=== PATIENT | female | born 1930 | race Caucasian/White ===

== ENCOUNTER 2018-02-08 21:23 | Emergency (ER) | payer MEDICARE, OTHER ==
[2018-02-08] MEDS ORDERED: methylPREDNISolone Sodium Succinate 125 MG/2 ML SDV IM ONE (22:01)
[2018-02-08] MEDS ORDERED: Albuterol/Ipratropium 3.0-0.5 MG/3 ML Neb Soln NEB ONE (22:01)
--- NOTE | 2018-02-08 22:41 | EDM.PDOC ---
ED HPI GENERAL MEDICAL PROBLEM - General Chief Complaint: Fever Stated Complaint: HIPOLITOG,SOB,FEVER Time Seen by Provider: 02/08/18 21:43 Source of Information: Reports: Patient History Limitations: Reports: Respiratory Distress - History of Present Illness INITIAL COMMENTS - FREE TEXT/NARRATIVE: 87 y.o.w.f with a h/o COPD on Atrovent and albuterol at home, has a nebulizer machine at home, came to the ed with an acute onset of productive cough, which is new to her. No F/C. No N/V/D or any other acute medical issues. 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 - Related Data Allergies Allergy/AdvReac Type Severity Reaction Status Date / Time aspirin Allergy Difficulty Verified 02/08/18 21:36 Breathing influenza virus vaccine, Allergy Rash Verified 02/08/18 21:36 specific [Influenza Virus Vacc,Specific] Home Meds: Home Meds Albuterol [Proair HFA] 2 puff INH QID PRN 01/22/14 [History] Ascorbic Acid 500 mg PO BEDTIME 01/22/14 [History] Budesonide [Pulmicort] 2 ml INH BID 01/22/14 [History] Hydrochlorothiazide 1 cap PO DAILY 01/22/14 [History] Ipratropium/Albuterol Sulfate [Duoneb 0.5 MG-3 MG/3 ML] 3 ml INH QID PRN [History] Lutein/Minerals/Vit A,C & E [Ocuvite] 1 tab PO BID 01/22/14 [History] Multivitamin with Minerals [Multiple Vitamin] 1 tab PO DAILY 01/22/14 [History] Simvastatin 1 tab PO BEDTIME 01/22/14 [History] Sulfamethoxazole/Trimethoprim [Bactrim Ds Tablet] 1 each PO BID #20 tablet 04/08 /18 [Rx] Past Medical History HEENT History: Reports: Impaired Vision Other HEENT History: wears glasses Cardiovascular History: Reports: High Cholesterol, Hypertension Respiratory 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: 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: Endocrine/Metabolic History: Reports: Diabetes, Type II, Other (See Below) Other Endocrine/Metabolic History: pt states is border line diabetic controled by diet - Infectious Disease History Infectious Disease History: Reports: Chicken Pox, Measles, Mumps, Shingles Social & Family History - Family History Family Medical History: Noncontributory - Tobacco Use Smoking Status *Q: Former Smoker Years of Tobacco use: 25 Used Tobacco, but Quit: Yes Month/Year Tobacco Last Used: 03/2011 - Caffeine Use Caffeine Use: Reports: None - Alcohol Use Days Per Week of Alcohol Use: 0 - Recreational Drug Use Recreational Drug Use: No ED ROS GENERAL - Review of Systems Review Of Systems: See Below Constitutional: Reports: No Symptoms HEENT: Reports: No Symptoms Respiratory: Reports: Shortness of Breath, Cough Cardiovascular: Reports: No Symptoms Endocrine: Reports: No Symptoms GI/Abdominal: Reports: No Symptoms : Reports: No Symptoms Musculoskeletal: Reports: No Symptoms Skin: Reports: No Symptoms Neurological: Reports: No Symptoms Psychiatric: Reports: No Symptoms Hematologic/Lymphatic: Reports: No Symptoms Immunologic: Reports: No Symptoms ED EXAM, GENERAL - Physical Exam Exam: See Below Exam Limited By: No Limitations General Appearance: Alert, WD/WN, Mild Distress Eye Exam: Bilateral Eye: Normal Inspection Ears: Normal External Exam Ear Exam: Bilateral Ear: Auricle Normal Nose: Normal Inspection, Normal Mucosa, No Blood Throat/Mouth: Normal Inspection, Normal Lips Head: Atraumatic, Normocephalic Neck: Normal Inspection, Supple, Non-Tender, Full Range of Motion Respiratory/Chest: No Respiratory Distress, Rhonchi Cardiovascular: Normal Peripheral Pulses, Regular Rate, Rhythm, No Edema, No Gallop, No JVD, No Murmur, No Rub Peripheral Pulses: 1+: Brachial (L) GI/Abdominal: Normal Bowel Sounds, Soft, Non-Tender, No Organomegaly, No Distention, No Abnormal Bruit, No Mass (Female) Exam: Deferred Rectal (Female) Exam: Deferred Back Exam: Normal Inspection Extremities: Normal Inspection, Normal Range of Motion, Non-Tender, No Pedal Edema, Normal Capillary Refill Neurological: Alert, Oriented, CN II-XII Intact, Normal Cognition, Normal Gait Psychiatric: Normal Affect, Normal Mood Skin Exam: Warm, Dry, Intact, Normal Color, No Rash Lymphatic: No Adenopathy Course - Vital Signs Text/Narrative:: 87 y.o.w.f with a h/o COPD on Atrovent and albuterol at home, has a nebulizer machine at home, came to the ed with an acute onset of productive cough, which is new to her. No F/C. No N/V/D or any other acute medical issues. BP 129/87 RR 20 Pulse ox 94% on RA temp 36.8 pulse 101 PE: 87 y.o.w. f with a h/o COPD cam to the ed with new onset of prod. cough Imaging: CXR :NAD. COPD Impression: COPD exacerbation, acute bronchitis Tx: Solumedrol, Duoneb, Bactrim DS as prescription Reexam: Improved, pt has prednison at home. Plan: D/C with instructions Last Recorded V/S: Last Vital Signs Temp 36.6 C 02/08/18 22:41 Pulse 107 H 02/08/18 22:41 Resp 18 02/08/18 22:41 BP 116/56 L 02/08/18 22:41 Pulse Ox 95 02/08/18 22:41 - Orders/Labs/Meds Orders: Active Orders 24 hr Category Date Time Status RT Aerosol Therapy [RC] ASDIRECTED Care 02/08/18 22:02 Active Chest 2V [CR] Stat Exams 02/08/18 22:01 Taken Meds: Medications Discontinued Medications Generic Name Dose Route Start Last Admin Trade Name Cori PRN Reason Stop Dose Admin Albuterol/Ipratropium 3 ml 02/08/18 22:01 02/08/18 22:12 Duoneb 3.0-0.5 Mg/3 Ml NEB 02/08/18 22:02 3 ml ONETIME ONE Administration Methylprednisolone Sodium Succinate 125 mg 02/08/18 22:01 02/08/18 22:10 Solu-Medrol IM 02/08/18 22:02 125 mg ONETIME ONE Administration Departure - Departure Time of Disposition: 22:38 Disposition: Home, Self-Care 01 Condition: Good Clinical Impression: COPD mixed type Acute bronchitis Qualifiers: Bronchitis organism: other organism Qualified Code(s): J20.8 - Acute bronchitis due to other specified organisms - Discharge Information Prescriptions: Sulfamethoxazole/Trimethoprim [Bactrim Ds Tablet] 1 each PO BID #20 tablet Referrals: Inga Elam, LIQUID LOADER [Primary Care Provider] - Forms: ED Department Discharge Additional Instructions: Please take the the Bactrim DS as recommended, please take Prednison 1/2 a tblet for 3 days. Continue your current meds, please f/u, come back to the ed if your symptoms get worse acutely - My Orders Last 24 Hours: My Active Orders 02/08/18 22:01 Chest 2V [CR] Stat 02/08/18 22:02 RT Aerosol Therapy [RC] ASDIRECTED - Assessment/Plan Last 24 Hours: My Active Orders 02/08/18 22:01 Chest 2V [CR] Stat 02/08/18 22:02 RT Aerosol Therapy [RC] ASDIRECTED
--- NOTE | 2018-02-09 13:41 | CR ---
INDICATION: Short of breath. CHEST: PA and lateral views of the chest 02/08/2018, compared with 01/22/2014 and 03/09/2011, again revealed findings compatible with COPD with prominent AP diameter, flattening of diaphragm leaves, and hyperaeration. Also, interdigitation of diaphragm leaves was present to a mild degree. A definite active infiltrate or effusion was not identified. The heart appeared normal in size and shape. The aorta is slightly tortuous with calcification in the arch and descending portion. Somewhat demineralized bony structures suggest the possibility of osteoporosis - correlate clinically. Bridging hyperostotic changes are noted anteriorly off vertebral bodies in the mid thoracic spine and may be slightly progressive compared with the previous study of 2013. Dextroconcave scoliosis of the upper middle thoracic spine is noted. IMPRESSION: 1. No definite acute process. 2. Areas of fibrosis noted, especially at the left lung base. 3. COPD. 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 MTDD
== END 2018-02-08 22:46 | disposition home or self-care (01) ==
LOC: FB.ED 21:23
DX: J44.1 Chronic obstructive pulmonary disease with (acute) exacerbation (principal); J20.8 Acute bronchitis due to other specified organisms; I10 Essential (primary) hypertension; E78.00 Pure hypercholesterolemia, unspecified; E11.9 Type 2 diabetes mellitus without complications; Z87.891 Personal history of nicotine dependence; Z88.6 Allergy status to analgesic agent
CPT/HCPCS: 71046; 94640; 96372; 99284; J2930; J7620

== ENCOUNTER 2018-05-21 02:21 | Emergency (ER) | payer MEDICARE, OTHER ==
[2018-05-21] MEDS ORDERED: Albuterol/Ipratropium 3.0-0.5 MG/3 ML Neb Soln NEB ONE (02:27)
[2018-05-21] MEDS ORDERED: methylPREDNISolone Sodium Succinate 125 MG/2 ML SDV IM ONE (02:46)
[2018-05-21] MEDS ORDERED: methylPREDNISolone Sodium Succinate 125 MG/2 ML SDV ONE (03:05)
--- NOTE | 2018-05-21 04:43 | ER ---
DATE SEEN: 05/21/2018 REASON FOR VISIT: Wheezing. HISTORY OF PRESENT ILLNESS: An 88-year-old female, who has a history of COPD, complains of wheezing that started suddenly at about 1700 hours associated with a cough. She tried albuterol at home with minimal improvement. PAST MEDICAL HISTORY: Hypertension and COPD. ALLERGIES: Aspirin and influenza virus vaccination. SOCIAL HISTORY: She quit smoking years ago. PHYSICAL EXAMINATION: VITAL SIGNS: Blood pressure is 163/65, pulse is 119, temperature 97.4, and oxygenation 92%. EARS, NOSE, AND THROAT: Negative. CHEST: Positive for wheezing and decreased air exchange bilaterally. EXTREMITIES: No edema or cyanosis. RADIOGRAPHIC DATA: Chest x-ray was unremarkable. LABORATORY DATA: CBC: Normal, with the exception of a white cell count of 14.3. Troponin and BNP are pending at the time of the dictation. DIAGNOSTIC DATA: EKG showed mild sinus tachycardia. IMPRESSION: Chronic obstructive pulmonary disease exacerbation, acute. PLAN: I gave her one-time DuoNeb and 125 mg of Solu-Medrol IM, and we will discharge the patient to use prednisone that she has at home and may use DuoNeb every 4 hours as needed. Follow up with Inga Elam on Friday. Return to the ED with any worsening symptoms. At discharge, she had some wheezing, but oxygenation was 93%. /[id number] CHARISMA/AILEEN
--- NOTE | 2018-05-21 13:21 | CR ---
INDICATION: Cough. CHEST, TWO VIEWS: PA and lateral views of the chest were obtained 05/21/2018 and compared with 02/08/2018 and 01/22/2014. The heart remains normal in size and shape. Slightly increased flattening of diaphragm leaves is noted, compatible with progressive COPD and/or exacerbation of COPD. A definite active infiltrate or effusion was not identified. Interstitial markings are again noted to be prominent, compatible with mild fibrosis. The aorta is slightly tortuous. Somewhat diminished bone density raises the question of osteoporosis. Bridging hyperostotic changes are noted in the mid to lower middle thoracic spine. There is again noted a mild dextroconvex scoliosis at the thoracolumbar spine. Minimal basilar bronchial wall cuffing is noted, which could represent fibrosis and/or active peribronchial disease and should be correlated clinically. IMPRESSION: 1. No definite acute process, but cannot exclude minimal active peribronchial disease at the lung bases with bronchial wall cuffing noted. 2. Pulmonary fibrosis. 3. COPD, possibly exacerbated or progressive. 4, ASD aorta. 5. Osteoporosis and DJD with scoliosis in the spine. MTDD
== END 2018-05-21 03:53 | disposition home or self-care (01) ==
LOC: FB.ED 02:21
DX: J44.1 Chronic obstructive pulmonary disease with (acute) exacerbation (principal); I10 Essential (primary) hypertension; J44.9 Chronic obstructive pulmonary disease, unspecified; Z88.6 Allergy status to analgesic agent; Z88.7 Allergy status to serum and vaccine; Z87.891 Personal history of nicotine dependence
CPT/HCPCS: 36415; 71046; 80053; 83880; 84484; 85025; 93005; 94640; 96372; 99285; J2930; J7620

== ENCOUNTER 2018-11-20 09:23 | Observation (INO) | payer MEDICARE, OTHER ==
[2018-11-20] MEDS ORDERED: Albuterol/Ipratropium 3.0-0.5 MG/3 ML Neb Soln NEB ONE (09:31)
[2018-11-20] MEDS ORDERED: methylPREDNISolone Sodium Succinate 125 MG/2 ML SDV IVPUSH ONE (09:33)
--- NOTE | 2018-11-20 09:41 | EDM.PDOC ---
ED HPI GENERAL MEDICAL PROBLEM - General Chief Complaint: Fever Stated Complaint: FEVER Time Seen by Provider: 11/20/18 09:23 Source of Information: Reports: Patient, Family History Limitations: Reports: Respiratory Distress - History of Present Illness INITIAL COMMENTS - FREE TEXT/NARRATIVE: 88 y.o.w.f came to the ed due to SOB and cough. Pt has COPD and is on home O2 by [place], has fever and productive cough. Pt has a nebulizer machine at home. She used it this am with helping her cough. Pt lives by herself, her daughter brought her to the ed. No C/P, no N/V/D or any other acute medical issues. 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 Treatments (duoneb, did not help) sleeping Pain Score (Numeric/FACES): 0 - Related Data Allergies Allergy/AdvReac Type Severity Reaction Status Date / Time aspirin Allergy Difficulty Verified 11/20/18 09:29 Breathing influenza virus vaccine, Allergy Rash Verified 11/20/18 09:29 specific [Influenza Virus Vacc,Specific] Home Meds: Home Meds Albuterol [Proair HFA] 2 puff INH QID PRN 01/22/14 [History] Ascorbic Acid 500 mg PO BEDTIME 01/22/14 [History] Budesonide [Pulmicort] 2 ml INH BID 01/22/14 [History] Hydrochlorothiazide 12.5 mg PO DAILY 01/22/14 [History] Ipratropium/Albuterol Sulfate [Duoneb 0.5 MG-3 MG/3 ML] 3 ml INH Q4H PRN [History] Lutein/Minerals/Vit A,C & E [Ocuvite] 1 tab PO DAILY 01/22/14 [History] Simvastatin 10 mg PO BEDTIME 01/22/14 [History] Acetaminophen 500 mg PO DAILY PRN 05/21/18 [History] Montelukast [Singulair] 10 mg PO BEDTIME 05/21/18 [History] .Advanced Eye Relief 1 drop EYEBOTH BID PRN 11/21/18 [History] Gabapentin [Neurontin] 100 mg PO TID PRN 11/21/18 [History] Melatonin 3 mg PO BEDTIME PRN 11/21/18 [History] predniSONE [Prednisone] 20 mg PO BID PRN #10 tablet 11/22/18 [Rx] Past Medical History HEENT History: Reports: Hard of Hearing, Impaired Vision Other HEENT History: wears glasses Cardiovascular History: Reports: High Cholesterol, Hypertension Respiratory History: Reports: 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, 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: Endocrine/Metabolic History: Reports: Diabetes, Type II, Other (See Below) Other Endocrine/Metabolic History: pt states is border line diabetic controled by diet - Infectious Disease History Infectious Disease History: Reports: Chicken Pox, Measles, Mumps, Shingles - Past Surgical History Female Surgical History: Reports: Hysterectomy Social & Family History - Family History Family Medical History: Noncontributory - Caffeine Use Caffeine Use: Reports: Coffee ED ROS GENERAL - Review of Systems Review Of Systems: See Below Constitutional: Reports: No Symptoms HEENT: Reports: No Symptoms Respiratory: Reports: Shortness of Breath Cardiovascular: Reports: No Symptoms Endocrine: Reports: No Symptoms GI/Abdominal: Reports: No Symptoms : Reports: No Symptoms Musculoskeletal: Reports: No Symptoms Skin: Reports: No Symptoms Neurological: Reports: No Symptoms Psychiatric: Reports: No Symptoms Hematologic/Lymphatic: Reports: No Symptoms Immunologic: Reports: No Symptoms ED EXAM, GENERAL - Physical Exam Exam: See Below Exam Limited By: Respiratory Distress General Appearance: Alert, WD/WN, Thin Eye Exam: Bilateral Eye: Normal Inspection Ears: Normal External Exam Ear Exam: Bilateral Ear: Auricle Normal Nose: Normal Inspection, Normal Mucosa, No Blood Throat/Mouth: Normal Inspection, Normal Lips, Normal Voice, No Airway Compromise Head: Atraumatic Neck: Normal Inspection, Supple, Non-Tender, Full Range of Motion Respiratory/Chest: Respiratory Distress, Rhonchi, Wheezing Cardiovascular: Normal Peripheral Pulses, Regular Rate, Rhythm, No Edema, No Gallop, No JVD, No Murmur Peripheral Pulses: 1+: Brachial (R) GI/Abdominal: Normal Bowel Sounds, Soft, Non-Tender, No Organomegaly, No Distention (Female) Exam: Deferred Rectal (Female) Exam: Deferred Back Exam: Normal Inspection, Full Range of Motion Extremities: Normal Inspection, Normal Range of Motion, Non-Tender Neurological: Alert, Oriented, CN II-XII Intact, Normal Cognition, Normal Gait Psychiatric: Normal Affect, Normal Mood Skin Exam: Warm, Dry, Intact, Normal Color, No Rash Lymphatic: No Adenopathy Course - Vital Signs Text/Narrative:: 88 y.o.w.f came to the ed due to SOB and cough. Pt has COPD and is on home O2 [place], has fever and productive cough. Pt has a nebulizer machine at home. She used it this am with helping her cough. Pt lives by herself, her daughter brought her to the ed. No C/P, no N/V/D or any other acute medical issues. BP 169/71 RR 18 Temp 36.8 Pulse 113 Pulse ox 87 on RA PE: This 88 y.o.w.f with a cough, fever and SOB Imaging: CXR: No nw infiltrate but bronchial cuffing s/o Bronchitis etc LabsL WBC 21k (February 14) Neutr. 99% reminder of CBC neg. BMP Neg Except GFR 52 Cl 99 Glc 160 Lactic acid was nl UA: pos for small Leucocytes Impresison: COPD. Brochial asthma, elevated WBC Tx: Duo neb, Solumedrol, Levoquine 10.37 am Consultation: Janki Avalos, Hospitalist: Accepted the pt for obs Plan: Admit to [facility]. Last Recorded V/S: Last Vital Signs Temp 36.4 C 11/22/18 08:41 Pulse 88 11/22/18 08:30 Resp 18 11/22/18 08:41 BP 148/74 H 11/22/18 08:41 Pulse Ox 93 L 11/22/18 08:41 - Orders/Labs/Meds Labs: Laboratory Tests 11/20/18 11/20/18 11/20/18 Range/Units 09:49 09:49 09:49 WBC 21.9 H (4.5-12.0) X10-3/uL RBC 4.72 (3.23-5.20) x10(6)uL Hgb 14.3 (11.5-15.5) g/dL Hct 41.9 (30.0-51.3) % MCV 88.7 (80-96) fL MCH 30.4 (27.7-33.6) pg MCHC 34.3 (32.2-35.4) g/dL RDW 12.1 (11.5-15.5) % Plt Count 333 (125-369) X10(3)uL MPV 7.6 (7.4-10.4) fL Add Manual Diff Yes Neutrophils % (Manual) 93 H (46-82) % Lymphocytes % (Manual) 4 L (13-37) % Monocytes % (Manual) 3 L (4-12) % Sodium 136 (135-145) mmol/L Potassium 3.8 (3.5-5.3) mmol/L Chloride 99 L (100-110) mmol/L Carbon Dioxide 30 (21-32) mmol/L BUN 16 (7-18) mg/dL Creatinine 1.0 (0.55-1.02) mg/dL Est Cr Clr Drug Dosing TNP Estimated GFR (MDRD) 52 L (>60) BUN/Creatinine Ratio 16.0 (9-20) Glucose 160 H (80-116) mg/dL Lactic Acid 0.9 (0.4-2.2) mmol/L Calcium 9.0 (8.6-10.2) mg/dL Meds: Medications Discontinued Medications Generic Name Dose Route Start Last Admin Trade Name Freq PRN Reason Stop Dose Admin Acetaminophen 500 mg 11/21/18 09:00 Tylenol Extra Strength PO DAILY PRN PAIN Albuterol 2.5 mg 11/20/18 10:40 11/21/18 21:15 Proventil Neb Soln NEB 2.5 mg Q2H PRN Administration Shortness Of Breath/wheezing Albuterol/Ipratropium 3 ml 11/20/18 09:31 11/20/18 09:38 Duoneb 3.0-0.5 Mg/3 Ml NEB 11/20/18 09:32 3 ml ONETIME ONE Administration Budesonide 0.25 mg 11/21/18 11:00 11/22/18 08:19 Pulmicort INH 0.25 mg BID DEAN Administration Guaifenesin/Codeine Phosphate 10 ml 11/20/18 17:07 Robitussin Ac PO Q6H PRN Cough Hydrochlorothiazide 12.5 mg 11/21/18 09:00 11/22/18 09:00 Hydrochlorothiazide PO 12.5 mg DAILY DEAN Administration Levofloxacin/Dextrose 500 mg/ 100 mls @ 100 mls/hr 11/20/18 10:16 11/20/18 10 :29 Premix IV 11/20/18 11:15 100 mls/hr ONETIME ONE Administration Azithromycin 500 mg/ Sodium 250 mls @ 250 mls/hr 11/20/18 18:00 11/20/18 17: 53 Chloride IV 250 mls/hr Q24H DEAN Administration Azithromycin 500 mg/ Sodium 250 mls @ 250 mls/hr 11/21/18 18:00 11/21/18 17: 10 Chloride IV 250 mls/hr Q24H DEAN Administration Methylprednisolone Sodium Succinate 125 mg 11/20/18 09:33 11/20/18 09:54 Solu-Medrol IVPUSH 11/20/18 09:34 125 mg ONETIME ONE Administration Methylprednisolone Sodium Succinate 125 mg 11/20/18 18:00 11/22/18 12:08 Solu-Medrol IVPUSH Not Given Q8H DEAN Non-Formulary Medication 1 tab 11/20/18 21:00 Lutein/Minerals/Vit A,C & E [Ocuvite] PO BID DEAN Sodium Chloride 10 ml 11/20/18 10:40 11/22/18 02:16 Saline Flush FLUSH 10 ml ASDIRECTED PRN Administration Keep Vein Open Departure - Departure Time of Disposition: 19:00 Disposition: Admitted As Inpatient 66 Condition: Fair Clinical Impression: Unable to ambulate - Discharge Information
[2018-11-20] MEDS ORDERED: Levofloxacin/Dextrose 5%-Water 500 MG in Premix Bag 1 BAG IV ONE (10:16)
--- NOTE | 2018-11-20 10:33 | CR ---
INDICATION: Shortness of breath, developed cough. CHEST TWO VIEWS: PA and lateral views of the chest were obtained 11/20/18 and compared with 05/21/18 and 02/08/18 revealing common AP diameter with flattening of diaphragm leads and hyperaeration compatible with COPD as previously. Heavy markings compatible with mild pulmonary fibrosis are again noted without a definite active infiltrate or effusion identified. However, bronchial wall cuffing is noted in the mid and especially lower lung flowers which may be on the basis of active peribronchial disease and/or fibrosis and should be correlated clinically. The heart is normal in size and shape. The aorta is somewhat tortuous with calcification in the arch. No evidence of CHF is seen. Diminished bone density suggests osteoporosis. Moderate bridging hyperostotic changes noted in the mid-thoracic spine. IMPRESSION: 1. No definite acute process, however, there is bronchial cuffing in the lower lung flowers especially at the lung bases of moderate degree which may be on the basis of active peribronchial disease as previously seen and/or fibrosis and should be correlated clinically. 2. Probable COPD. 3. ASD aorta. 4. Osteoporosis and DJD spine. Report was given by phone to Dr. Jorge at 1010 hours. [facility]
[2018-11-20] MEDS: Albuterol 0.083% 2.5 MG/3 ML Neb Soln NEB PRN (12:28)
[2018-11-20] MEDS ORDERED: Codeine/guaiFENesin 100-10 MG/5 ML Syrup 5 ML Cup PO PRN (17:07)
--- NOTE | 2018-11-20 17:14 | PCM.HP ---
H&P History of Present Illness - General Date of Service: 11/20/18 Admit Problem/Dx: Admission Diagnosis/Problem Admission Diagnosis/Problem COPD with acute lower respiratory infection History Limitations: Reports: No Limitations - History of Present Illness Initial Comments - Free Text/Narative: Joi came in because of wheezing, difficulty breathing and fever. She started getting sick on Friday fairly insidious in onset. She also presented with the cough that is dry, and generalized weakness. She has a history of hypertension and COPD and tobacco abuse the previously uncontrolled.She recently saw Noel Sanchez at [facility] for Back pain,new - Related Data Allergies/Adverse Reactions: Allergies Allergy/AdvReac Type Severity Reaction Status Date / Time aspirin Allergy Difficulty Verified 11/20/18 09:29 Breathing influenza virus vaccine, Allergy Rash Verified 11/20/18 09:29 specific [Influenza Virus Vacc,Specific] Home Medications: Home Meds Albuterol [Proair HFA] 2 puff INH QID PRN 01/22/14 [History] Ascorbic Acid 500 mg PO BEDTIME 01/22/14 [History] Budesonide [Pulmicort] 2 ml INH BID 01/22/14 [History] Hydrochlorothiazide 12.5 mg PO DAILY 01/22/14 [History] Ipratropium/Albuterol Sulfate [Duoneb 0.5 MG-3 MG/3 ML] 3 ml INH QID PRN [History] Lutein/Minerals/Vit A,C & E [Ocuvite] 1 tab PO BID 01/22/14 [History] Simvastatin 10 mg PO BEDTIME 01/22/14 [History] Acetaminophen 500 mg PO DAILY 05/21/18 [History] Montelukast [Singulair] 10 mg PO BEDTIME 05/21/18 [History] Past Medical History HEENT History: Reports: Hard of Hearing, Impaired Vision Other HEENT History: wears glasses Cardiovascular History: Reports: High Cholesterol, Hypertension Respiratory History: Reports: Asthma, COPD TECHNOLOGY COORDINATOR 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: Reports: Endocrine/Metabolic History: Reports: Diabetes, Type II, Other (See Below) Other Endocrine/Metabolic History: pt states is border line diabetic controled by diet - Infectious Disease History Infectious Disease History: Reports: Chicken Pox, Measles, Mumps, Shingles - Past Surgical History Female Surgical History: Reports: Hysterectomy Social & Family History - Family History Family Medical History: Noncontributory - Tobacco Use Smoking Status *Q: Never Smoker Second Hand Smoke Exposure: No - Caffeine Use Caffeine Use: Reports: Coffee - Recreational Drug Use Recreational Drug Use: No H&P Review of Systems - Review of Systems: Review Of Systems: ROS reveals no pertinent complaints other than HPI. Exam - Exam Exam: See Below - Vital Signs Vital Signs: Last Vital Signs Temp 99.2 F 11/20/18 15:52 Pulse 88 11/20/18 15:52 Resp 20 11/20/18 15:52 BP 118/67 11/20/18 15:52 Pulse Ox 96 11/20/18 15:52 Weight: 61.235 kg - Exam Quality Assessment: Supplemental Oxygen General: Alert, Oriented, 4 HEENT: PERRLA, Hearing Intact, Mucosa Moist & [place], Nares Patent, Normal Nasal Septum, Posterior Pharynx Clear, Conjunctiva Clear, EOMI, EACs Clear, TMs Clear Neck: Supple, Trachea Midline, 2 Lungs: Decreased Breath Sounds, Rhonchi, Wheezing. No: Normal Respiratory Effort Cardiovascular: Regular Rate, Regular Rhythm GI/Abdominal Exam: Normal Bowel Sounds, Soft, Non-Tender, No Organomegaly, No Distention, No Abnormal Bruit, No Mass, Pelvis Stable (Female) Exam: Deferred Rectal (Female) Exam: Deferred Back Exam: Normal Inspection, Full Range of Motion, NT Extremities: Normal Inspection, Normal Range of Motion, Non-Tender, No Pedal Edema, Normal Capillary Refill Skin: Warm, Dry, Intact Neurological: Cranial Nerves Intact, Reflexes Equal Bilateral Neuro Extensive - Mental Status: Alert, Oriented x3, Normal Mood/Affect, Normal Cognition Neuro Extensive - Motor, Sensory, Reflexes: CN II-XII Intact, Normal Gait, Normal Reflexes Psychiatric: Alert, Normal Affect, Normal Mood - Patient Data Lab Results Last 24 hrs: Laboratory Results - last 24 hr 11/20/18 11/20/18 11/20/18 Range/Units 09:49 09:49 09:49 WBC 21.9 H (4.5-12.0) X10-3/uL RBC 4.72 (3.23-5.20) x10(6)uL Hgb 14.3 (11.5-15.5) g/dL Hct 41.9 (30.0-51.3) % MCV 88.7 (80-96) fL MCH 30.4 (27.7-33.6) pg MCHC 34.3 (32.2-35.4) g/dL RDW 12.1 (11.5-15.5) % Plt Count 333 (125-369) X10(3)uL MPV 7.6 (7.4-10.4) fL Add Manual Diff Yes Neutrophils % (Manual) 93 H (46-82) % Lymphocytes % (Manual) 4 L (13-37) % Monocytes % (Manual) 3 L (4-12) % Sodium 136 (135-145) mmol/L Potassium 3.8 (3.5-5.3) mmol/L Chloride 99 L (100-110) mmol/L Carbon Dioxide 30 (21-32) mmol/L BUN 16 (7-18) mg/dL Creatinine 1.0 (0.55-1.02) mg/dL Est Cr Clr Drug Dosing TNP Estimated GFR (MDRD) 52 L (>60) BUN/Creatinine Ratio 16.0 (9-20) Glucose 160 H (80-116) mg/dL Lactic Acid 0.9 (0.4-2.2) mmol/L Calcium 9.0 (8.6-10.2) mg/dL Urine Color (YELLOW) Urine Appearance (CLEAR) Urine pH (5.0-6.5) Ur Specific [place] (1.010-1.025) Urine Protein (NEGATIVE) mg/dL Urine Glucose (UA) (NEGATIVE) mg/dL Urine Ketones (NEGATIVE) mg/dL Urine Occult Blood (NEGATIVE) Urine Nitrite (NEGATIVE) Urine Bilirubin (NEGATIVE) Urine Urobilinogen (NEGATIVE) mg/dL Ur Leukocyte Esterase (NEGATIVE) Urine RBC (0) Urine WBC (0) Ur Squamous Epith Cells (NS,R,O) Urine Bacteria (NS) 11/20/18 Range/Units 15:05 WBC (4.5-12.0) X10-3/uL RBC (3.23-5.20) x10(6)uL Hgb (11.5-15.5) g/dL Hct (30.0-51.3) % MCV (80-96) fL MCH (27.7-33.6) pg MCHC (32.2-35.4) g/dL RDW (11.5-15.5) % Plt Count (125-369) X10(3)uL MPV (7.4-10.4) fL Add Manual Diff Neutrophils % (Manual) (46-82) % Lymphocytes % (Manual) (13-37) % Monocytes % (Manual) (4-12) % Sodium (135-145) mmol/L Potassium (3.5-5.3) mmol/L Chloride (100-110) mmol/L Carbon Dioxide (21-32) mmol/L BUN (7-18) mg/dL Creatinine (0.55-1.02) mg/dL Est Cr Clr Drug Dosing Estimated GFR (MDRD) (>60) BUN/Creatinine Ratio (9-20) Glucose (80-116) mg/dL Lactic Acid (0.4-2.2) mmol/L Calcium (8.6-10.2) mg/dL Urine Color Yellow (YELLOW) Urine Appearance Clear (CLEAR) Urine pH 6.0 (5.0-6.5) Ur Specific [place] 1.015 (1.010-1.025) Urine Protein Negative (NEGATIVE) mg/dL Urine Glucose (UA) 100 H (NEGATIVE) mg/dL Urine Ketones 15 H (NEGATIVE) mg/dL Urine Occult Blood Negative (NEGATIVE) Urine Nitrite Negative (NEGATIVE) Urine Bilirubin Negative (NEGATIVE) Urine Urobilinogen Normal (NEGATIVE) mg/dL Ur Leukocyte Esterase Small H (NEGATIVE) Urine RBC 0-5 (0) Urine WBC 0-5 (0) Ur Squamous Epith Cells Moderate H (NS,R,O) Urine Bacteria Few H (NS) Result Diagrams: 11/20/18 09:49 11/20/18 09:49 - Problem List (1) COPD (chronic obstructive pulmonary disease) with acute bronchitis SNOMED Code(s): 638452549899959 ICD Code: J44.0 - CHRONIC OBSTRUCTIVE PULMON DISEASE W ACUTE LOWER RESP INFCT ; J20.9 - ACUTE BRONCHITIS, UNSPECIFIED Status: Acute Current Visit: Yes (2) HTN (hypertension) SNOMED Code(s): 96352961 ICD Code: I10 - ESSENTIAL (PRIMARY) HYPERTENSION Status: Chronic Current Visit: Yes Qualifiers: Hypertension type: essential hypertension Qualified Code(s): I10 - Essential (primary) hypertension (3) General weakness SNOMED Code(s): 50445712 ICD Code: R53.1 - WEAKNESS Status: Acute Current Visit: Yes (4) Tobacco abuse SNOMED Code(s): 965341875 ICD Code: Z72.0 - TOBACCO USE Status: Chronic Current Visit: Yes (5) Acute back pain SNOMED Code(s): 747714937, 741891024 ICD Code: M54.9 - DORSALGIA, UNSPECIFIED Status: Acute Current Visit: Yes Qualifiers: Back pain location: low back pain Problem List Initiated/Reviewed/Updated: Yes Orders Last 24hrs: Active Orders 24 hr Category Date Time Status Patient Status [ADT] Routine ADT 11/20/18 10:43 Active Oxygen Therapy [RC] PRN Care 11/20/18 10:43 Active Pulse Oximetry [RC] PRN Care 11/20/18 10:45 Active RT Aerosol Therapy [RC] ASDIRECTED Care 11/20/18 10:45 Active Up With Assistance [RC] ASDIRECTED Care 11/20/18 10:40 Active VTE/DVT Education [RC] Per Unit Routine Care 11/20/18 10:43 Active Vital Signs [RC] 08,12,16,20,00 Care 11/20/18 10:43 Active Consistent Carbohydrate Diet [DIET] Diet 11/20/18 Breakfast Ordered CBC WITH AUTO DIFF [HEME] AM Lab 11/21/18 05:11 Ordered COMPREHENSIVE METABOLIC PN,CMP [CHEM] AM Lab 11/21/18 05:11 Ordered CULTURE BLOOD [BC] Urgent Lab 11/20/18 10:25 Received CULTURE BLOOD [BC] Urgent Lab 11/20/18 10:30 Received INFLUENZA A+B AG SCREEN [RM] Urgent Lab 11/20/18 17:09 Ordered PRO B-TYPE NATRIUR PEPT,BNPPRO [CHEM] DAILY Lab 11/21/18 06:00 Ordered TROPONIN I [CHEM] AM Lab 11/21/18 05:11 Ordered Albuterol [Proventil Neb Soln] Med 11/20/18 10:40 Active 2.5 mg NEB Q2H PRN Azithromycin [Zithromax] 500 mg Med 11/20/18 17:15 Ordered Sodium Chloride 0.9% [Normal Saline] 250 ml IV Q24H Codeine/guaiFENesin [Robitussin AC] Med 11/20/18 17:07 Ordered 10 ml PO Q6H PRN Sodium Chloride 0.9% [Saline Flush] Med 11/20/18 10:40 Active 10 ml FLUSH ASDIRECTED PRN methylPREDNISolone Sod Succ [Solu-MEDROL] Med 11/20/18 17:15 Ordered 125 mg IVPUSH Q8H Blood Culture x2 Reflex Set [OM.PC] Urgent Oth 11/20/18 10:06 Ordered Peripheral IV Insertion Adult [OM.PC] Routine Oth 11/20/18 10:40 Ordered Code Status [Resuscitation Status] Stat Resus Stat 11/20/18 10:49 Ordered Medication Orders Albuterol (Proventil Neb Soln) 2.5 mg NEB Q2H PRN PRN Reason: Shortness Of Breath/wheezing Last Admin: 11/20/18 12:28 Dose: 2.5 mg Guaifenesin/Codeine Phosphate (Robitussin Ac) 10 ml PO Q6H PRN PRN Reason: Cough Azithromycin 500 mg/ Sodium (Chloride) 250 mls @ 250 mls/hr IV Q24H DEAN Methylprednisolone Sodium Succinate (Solu-Medrol) 125 mg IVPUSH Q8H DEAN Sodium Chloride (Saline Flush) 10 ml FLUSH ASDIRECTED PRN PRN Reason: Keep Vein Open Assessment/Plan Comment:: I will plan to put her on Solu Medrol, SVNs and Robitussin with codeine. Due to leukocytosis even though this could be due to prednisone, I recommend we start azithromycin.Repeat labs in AM
[2018-11-20] MEDS: methylPREDNISolone Sodium Succinate 125 MG/2 ML SDV IVPUSH SCH (17:53)
[2018-11-20] MEDS ORDERED: Azithromycin 500 MG in Sodium Chloride 0.9% 250 ML IV SCH (18:00)
[2018-11-20] MEDS: Sodium Chloride 0.9% 10 ML Syringe FLUSH PRN (19:24)
[2018-11-20] MEDS ORDERED: Non-Formulary Medication 1 Each (Lutein/Minerals/Vit A,C & E [Ocuvite] 1 TAB) PO SCH (21:00)
[2018-11-21] MEDS: methylPREDNISolone Sodium Succinate 125 MG/2 ML SDV IVPUSH SCH ×3 (01:40→17:05)
[2018-11-21] MEDS: Sodium Chloride 0.9% 10 ML Syringe FLUSH PRN ×4 (01:41→17:14)
[2018-11-21] MEDS: Albuterol 0.083% 2.5 MG/3 ML Neb Soln NEB PRN ×2 (08:55→21:15)
[2018-11-21] MEDS ORDERED: Acetaminophen 500 MG Tab PO PRN (09:00)
--- NOTE | 2018-11-21 09:13 | PCM.PN ---
- General Info Date of Service: 11/21/18 Subjective Update: Still has cough and wheezing. No fever. Functional Status: Reports: Pain Controlled - Review of Systems HEENT: Reports: No Symptoms Pulmonary: Reports: Shortness of Breath, Cough, Wheezing Cardiovascular: Reports: No Symptoms Gastrointestinal: Reports: No Symptoms Genitourinary: Reports: No Symptoms - Patient Data Vitals - Most Recent: Last Vital Signs Temp 97.6 F 11/21/18 06:10 Pulse 83 11/21/18 06:10 Resp 20 11/21/18 06:10 BP 149/69 H 11/21/18 06:10 Pulse Ox 96 11/21/18 07:55 Weight - Most Recent: 61.235 kg I&O - Last 24 Hours: Intake & Output 11/20/18 11/21/18 11/21/18 22:59 06:59 14:59 Intake Total 200 Balance 200 Lab Results Last 24 Hours: Laboratory Results - last 24 hr 11/20/18 11/20/18 11/20/18 Range/Units 09:49 09:49 09:49 WBC 21.9 H (4.5-12.0) X10-3/uL RBC 4.72 (3.23-5.20) x10(6)uL Hgb 14.3 (11.5-15.5) g/dL Hct 41.9 (30.0-51.3) % MCV 88.7 (80-96) fL MCH 30.4 (27.7-33.6) pg MCHC 34.3 (32.2-35.4) g/dL RDW 12.1 (11.5-15.5) % Plt Count 333 (125-369) X10(3)uL MPV 7.6 (7.4-10.4) fL Add Manual Diff Yes Neutrophils % (Manual) 93 H (46-82) % Lymphocytes % (Manual) 4 L (13-37) % Monocytes % (Manual) 3 L (4-12) % Hypersegmented Neuts Sodium 136 (135-145) mmol/L Potassium 3.8 (3.5-5.3) mmol/L Chloride 99 L (100-110) mmol/L Carbon Dioxide 30 (21-32) mmol/L BUN 16 (7-18) mg/dL Creatinine 1.0 (0.55-1.02) mg/dL Est Cr Clr Drug Dosing TNP Estimated GFR (MDRD) 52 L (>60) BUN/Creatinine Ratio 16.0 (9-20) Glucose 160 H (80-116) mg/dL Lactic Acid 0.9 (0.4-2.2) mmol/L Calcium 9.0 (8.6-10.2) mg/dL Total Bilirubin (0.1-1.3) mg/dL AST (5-25) IU/L ALT (12-36) U/L Alkaline Phosphatase (56-112) IU/L Troponin I (<0.017-0.056) ng/mL NT-Pro-B Natriuret Pep (<=450) pg/mL Total Protein (6.0-8.0) g/dL Albumin (3.2-4.6) g/dL Globulin g/dL Albumin/Globulin Ratio Urine Color (YELLOW) Urine Appearance (CLEAR) Urine pH (5.0-6.5) Ur Specific [place] (1.010-1.025) Urine Protein (NEGATIVE) mg/dL Urine Glucose (UA) (NEGATIVE) mg/dL Urine Ketones (NEGATIVE) mg/dL Urine Occult Blood (NEGATIVE) Urine Nitrite (NEGATIVE) Urine Bilirubin (NEGATIVE) Urine Urobilinogen (NEGATIVE) mg/dL Ur Leukocyte Esterase (NEGATIVE) Urine RBC (0) Urine WBC (0) Ur Squamous Epith Cells (NS,R,O) Urine Bacteria (NS) 11/20/18 11/21/18 11/21/18 Range/Units 15:05 06:25 06:25 WBC 17.5 H (4.5-12.0) X10-3/uL RBC 4.40 (3.23-5.20) x10(6)uL Hgb 13.5 (11.5-15.5) g/dL Hct 39.3 (30.0-51.3) % MCV 89.2 (80-96) fL MCH 30.5 (27.7-33.6) pg MCHC 34.2 (32.2-35.4) g/dL RDW 11.8 (11.5-15.5) % Plt Count 294 (125-369) X10(3)uL MPV 8.0 (7.4-10.4) fL Add Manual Diff Yes Neutrophils % (Manual) 98 H (46-82) % Lymphocytes % (Manual) 2 L (13-37) % Monocytes % (Manual) (4-12) % Hypersegmented Neuts Occasional Sodium 140 (135-145) mmol/L Potassium 3.4 L (3.5-5.3) mmol/L Chloride 101 (100-110) mmol/L Carbon Dioxide 29 (21-32) mmol/L BUN 16 (7-18) mg/dL Creatinine 0.9 (0.55-1.02) mg/dL Est Cr Clr Drug Dosing 37.31 Estimated GFR (MDRD) 59 L (>60) BUN/Creatinine Ratio 17.8 (9-20) Glucose 169 H (80-116) mg/dL Lactic Acid (0.4-2.2) mmol/L Calcium 8.9 (8.6-10.2) mg/dL Total Bilirubin 0.3 (0.1-1.3) mg/dL AST 10 D (5-25) IU/L ALT 9 L D (12-36) U/L Alkaline Phosphatase 87 (56-112) IU/L Troponin I (<0.017-0.056) ng/mL NT-Pro-B Natriuret Pep (<=450) pg/mL Total Protein 7.2 (6.0-8.0) g/dL Albumin 2.9 L (3.2-4.6) g/dL Globulin 4.3 g/dL Albumin/Globulin Ratio 0.7 Urine Color Yellow (YELLOW) Urine Appearance Clear (CLEAR) Urine pH 6.0 (5.0-6.5) Ur Specific [place] 1.015 (1.010-1.025) Urine Protein Negative (NEGATIVE) mg/dL Urine Glucose (UA) 100 H (NEGATIVE) mg/dL Urine Ketones 15 H (NEGATIVE) mg/dL Urine Occult Blood Negative (NEGATIVE) Urine Nitrite Negative (NEGATIVE) Urine Bilirubin Negative (NEGATIVE) Urine Urobilinogen Normal (NEGATIVE) mg/dL Ur Leukocyte Esterase Small H (NEGATIVE) Urine RBC 0-5 (0) Urine WBC 0-5 (0) Ur Squamous Epith Cells Moderate H (NS,R,O) Urine Bacteria Few H (NS) 11/21/18 Range/Units 06:25 WBC (4.5-12.0) X10-3/uL RBC (3.23-5.20) x10(6)uL Hgb (11.5-15.5) g/dL Hct (30.0-51.3) % MCV (80-96) fL MCH (27.7-33.6) pg MCHC (32.2-35.4) g/dL RDW (11.5-15.5) % Plt Count (125-369) X10(3)uL MPV (7.4-10.4) fL Add Manual Diff Neutrophils % (Manual) (46-82) % Lymphocytes % (Manual) (13-37) % Monocytes % (Manual) (4-12) % Hypersegmented Neuts Sodium (135-145) mmol/L Potassium (3.5-5.3) mmol/L Chloride (100-110) mmol/L Carbon Dioxide (21-32) mmol/L BUN (7-18) mg/dL Creatinine (0.55-1.02) mg/dL Est Cr Clr Drug Dosing Estimated GFR (MDRD) (>60) BUN/Creatinine Ratio (9-20) Glucose (80-116) mg/dL Lactic Acid (0.4-2.2) mmol/L Calcium (8.6-10.2) mg/dL Total Bilirubin (0.1-1.3) mg/dL AST (5-25) IU/L ALT (12-36) U/L Alkaline Phosphatase (56-112) IU/L Troponin I < 0.017 L (<0.017-0.056) ng/mL NT-Pro-B Natriuret Pep 669 H (<=450) pg/mL Total Protein (6.0-8.0) g/dL Albumin (3.2-4.6) g/dL Globulin g/dL Albumin/Globulin Ratio Urine Color (YELLOW) Urine Appearance (CLEAR) Urine pH (5.0-6.5) Ur Specific [place] (1.010-1.025) Urine Protein (NEGATIVE) mg/dL Urine Glucose (UA) (NEGATIVE) mg/dL Urine Ketones (NEGATIVE) mg/dL Urine Occult Blood (NEGATIVE) Urine Nitrite (NEGATIVE) Urine Bilirubin (NEGATIVE) Urine Urobilinogen (NEGATIVE) mg/dL Ur Leukocyte Esterase (NEGATIVE) Urine RBC (0) Urine WBC (0) Ur Squamous Epith Cells (NS,R,O) Urine Bacteria (NS) Carmelo Results Last 24 Hours: Microbiology 11/20/18 18:25 Influenza Type A Antigen Screen - Final Nasal, Unspecified NEGATIVE INFLUENZA A VIRUS AG Influenza Type B Antigen Screen - Final NEGATIVE INFLUENZA B VIRUS AG Med Orders - Current: Current Medications Acetaminophen (Tylenol Extra Strength) 500 mg PO DAILY [facility] Albuterol (Proventil Neb Soln) 2.5 mg NEB Q2H PRN PRN Reason: Shortness Of Breath/wheezing Last Admin: 11/21/18 08:55 Dose: 2.5 mg Budesonide (Pulmicort) 0.25 mg INH BID [facility] Guaifenesin/Codeine Phosphate (Robitussin Ac) 10 ml PO Q6H PRN PRN Reason: Cough Hydrochlorothiazide (Hydrochlorothiazide) 12.5 mg PO DAILY [facility] Azithromycin 500 mg/ Sodium (Chloride) 250 mls @ 250 mls/hr IV Q24H [facility] Last Admin: 11/20/18 17:53 Dose: 250 mls/hr Methylprednisolone Sodium Succinate (Solu-Medrol) 125 mg IVPUSH Q8H [facility] Last Admin: 11/21/18 01:40 Dose: 125 mg Non-Formulary Medication (Lutein/Minerals/Vit A,C & E [Ocuvite]) 1 tab PO BID [facility] Sodium Chloride (Saline Flush) 10 ml FLUSH ASDIRECTED PRN PRN Reason: Keep Vein Open Last Admin: 11/21/18 01:41 Dose: 10 ml Discontinued Medications Albuterol/Ipratropium (Duoneb 3.0-0.5 Mg/3 Ml) 3 ml NEB ONETIME ONE Stop: 11/20/18 09:32 Last Admin: 11/20/18 09:38 Dose: 3 ml Levofloxacin/Dextrose 500 mg/ (Premix) 100 mls @ 100 mls/hr IV ONETIME ONE Stop: 11/20/18 11:15 Last Admin: 11/20/18 10:29 Dose: 100 mls/hr Methylprednisolone Sodium Succinate (Solu-Medrol) 125 mg IVPUSH ONETIME ONE Stop: 11/20/18 09:34 Last Admin: 11/20/18 09:54 Dose: 125 mg - Exam Quality Assessment: No: Supplemental Oxygen General: Alert, Oriented HEENT: Pupils Equal Neck: Supple Lungs: Decreased Breath Sounds, Rhonchi, Wheezing Cardiovascular: Regular Rate - Problem List & Annotations (1) COPD (chronic obstructive pulmonary disease) with acute bronchitis SNOMED Code(s): 243341724882984 Code(s): J44.0 - CHRONIC OBSTRUCTIVE PULMON DISEASE W ACUTE LOWER RESP INFCT ; J20.9 - ACUTE BRONCHITIS, UNSPECIFIED Status: Acute Current Visit: Yes (2) HTN (hypertension) SNOMED Code(s): 37705317 Code(s): I10 - ESSENTIAL (PRIMARY) HYPERTENSION Status: Chronic Current Visit: Yes Qualifiers: Hypertension type: essential hypertension Qualified Code(s): I10 - Essential (primary) hypertension (3) General weakness SNOMED Code(s): 66364174 Code(s): R53.1 - WEAKNESS Status: Acute Current Visit: Yes (4) Tobacco abuse SNOMED Code(s): 700827074 Code(s): Z72.0 - TOBACCO USE Status: Chronic Current Visit: Yes (5) Acute back pain SNOMED Code(s): 021281176, 422435930 Code(s): M54.9 - DORSALGIA, UNSPECIFIED Status: Acute Current Visit: Yes Qualifiers: Back pain location: low back pain - Problem List Review Problem List Initiated/Reviewed/Updated: Yes - My Orders Last 24 Hours: My Active Orders 11/20/18 17:07 Codeine/guaiFENesin [Robitussin AC] 10 ml PO Q6H PRN 11/20/18 18:00 Azithromycin [Zithromax] 500 mg Sodium Chloride 0.9% [Normal Saline] 250 ml IV Q24H methylPREDNISolone Sod Succ [Solu-MEDROL] 125 mg IVPUSH Q8H 11/20/18 21:00 Budesonide [Pulmicort] 0.25 mg INH BID Lutein/Minerals/Vit A,C & E [Ocuvite] 1 tab PO BID 11/21/18 09:00 Acetaminophen [Tylenol Extra Strength] 500 mg PO DAILY hydroCHLOROthiazide 12.5 mg PO DAILY - Plan Plan:: Continue current meds,is off O2 now.
[2018-11-21] MEDS: BUDESONIDE 0.25 MG/2 ML INH SCH ×2 (11:36→20:53)
[2018-11-21] MEDS ORDERED: Azithromycin 500 MG in Sodium Chloride 0.9% 250 ML IV SCH (18:00)
[2018-11-22] MEDS: Sodium Chloride 0.9% 10 ML Syringe FLUSH PRN (02:16)
[2018-11-22] MEDS: methylPREDNISolone Sodium Succinate 125 MG/2 ML SDV IVPUSH SCH ×2 (02:16→12:08)
[2018-11-22] MEDS: BUDESONIDE 0.25 MG/2 ML INH SCH (08:19)
--- NOTE | 2018-11-22 09:06 | PCM.PN ---
- General Info Date of Service: 11/22/18 Subjective Update: Still has cough and wheezing. No fever.Feels better overall. Functional Status: Reports: Pain Controlled - Review of Systems General: Reports: No Symptoms HEENT: Reports: No Symptoms Pulmonary: Reports: Shortness of Breath, Cough, Sputum, Wheezing Cardiovascular: Reports: No Symptoms Gastrointestinal: Reports: No Symptoms Genitourinary: Reports: No Symptoms - Patient Data Vitals - Most Recent: Last Vital Signs Temp 97.5 F 11/22/18 08:41 Pulse 78 11/22/18 02:15 Resp 18 11/22/18 08:41 BP 148/74 H 11/22/18 08:41 Pulse Ox 93 L 11/22/18 08:41 Weight - Most Recent: 61.054 kg I&O - Last 24 Hours: Intake & Output 11/21/18 11/22/18 11/22/18 22:59 06:59 14:59 Intake Total 250 Balance 250 Carmelo Results Last 24 Hours: Microbiology 11/20/18 10:30 Aerobic Blood Culture - Preliminary Blood - Venous - Lab Draw NO GROWTH AFTER 1 DAY Anaerobic Blood Culture - Preliminary NO GROWTH AFTER 1 DAY 11/20/18 10:25 Aerobic Blood Culture - Preliminary Blood - Venous NO GROWTH AFTER 1 DAY Anaerobic Blood Culture - Preliminary NO GROWTH AFTER 1 DAY Med Orders - Current: Current Medications Acetaminophen (Tylenol Extra Strength) 500 mg PO DAILY PRN PRN Reason: PAIN Albuterol (Proventil Neb Soln) 2.5 mg NEB Q2H PRN PRN Reason: Shortness Of Breath/wheezing Last Admin: 11/21/18 21:15 Dose: 2.5 mg Budesonide (Pulmicort) 0.25 mg INH BID [facility] Last Admin: 11/22/18 08:19 Dose: 0.25 mg Guaifenesin/Codeine Phosphate (Robitussin Ac) 10 ml PO Q6H PRN PRN Reason: Cough Hydrochlorothiazide (Hydrochlorothiazide) 12.5 mg PO DAILY [facility] Last Admin: 11/22/18 09:00 Dose: 12.5 mg Azithromycin 500 mg/ Sodium (Chloride) 250 mls @ 250 mls/hr IV Q24H [facility] Last Admin: 11/21/18 17:10 Dose: 250 mls/hr Methylprednisolone Sodium Succinate (Solu-Medrol) 125 mg IVPUSH Q8H [facility] Last Admin: 11/22/18 02:16 Dose: 125 mg Non-Formulary Medication (Lutein/Minerals/Vit A,C & E [Ocuvite]) 1 tab PO BID [facility] Sodium Chloride (Saline Flush) 10 ml FLUSH ASDIRECTED PRN PRN Reason: Keep Vein Open Last Admin: 11/22/18 02:16 Dose: 10 ml Discontinued Medications Albuterol/Ipratropium (Duoneb 3.0-0.5 Mg/3 Ml) 3 ml NEB ONETIME ONE Stop: 11/20/18 09:32 Last Admin: 11/20/18 09:38 Dose: 3 ml Levofloxacin/Dextrose 500 mg/ (Premix) 100 mls @ 100 mls/hr IV ONETIME ONE Stop: 11/20/18 11:15 Last Admin: 11/20/18 10:29 Dose: 100 mls/hr Azithromycin 500 mg/ Sodium (Chloride) 250 mls @ 250 mls/hr IV Q24H [facility] Last Admin: 11/20/18 17:53 Dose: 250 mls/hr Methylprednisolone Sodium Succinate (Solu-Medrol) 125 mg IVPUSH ONETIME ONE Stop: 11/20/18 09:34 Last Admin: 11/20/18 09:54 Dose: 125 mg - Exam Quality Assessment: No: Supplemental Oxygen General: Alert, Oriented HEENT: Pupils Equal Lungs: Decreased Breath Sounds, Rhonchi, Wheezing Cardiovascular: Regular Rate - Problem List & Annotations (1) COPD (chronic obstructive pulmonary disease) with acute bronchitis SNOMED Code(s): 910168036495241 Code(s): J44.0 - CHRONIC OBSTRUCTIVE PULMON DISEASE W ACUTE LOWER RESP INFCT ; J20.9 - ACUTE BRONCHITIS, UNSPECIFIED Status: Acute Current Visit: Yes (2) HTN (hypertension) SNOMED Code(s): 49604224 Code(s): I10 - ESSENTIAL (PRIMARY) HYPERTENSION Status: Chronic Current Visit: Yes Qualifiers: Hypertension type: essential hypertension Qualified Code(s): I10 - Essential (primary) hypertension (3) General weakness SNOMED Code(s): 43731879 Code(s): R53.1 - WEAKNESS Status: Acute Current Visit: Yes (4) Tobacco abuse SNOMED Code(s): 387800510 Code(s): Z72.0 - TOBACCO USE Status: Chronic Current Visit: Yes (5) Acute back pain SNOMED Code(s): 414436145, 292485454 Code(s): M54.9 - DORSALGIA, UNSPECIFIED Status: Acute Current Visit: Yes Qualifiers: Back pain location: low back pain - Problem List Review Problem List Initiated/Reviewed/Updated: Yes - My Orders Last 24 Hours: My Active Orders 11/21/18 09:00 Acetaminophen [Tylenol Extra Strength] 500 mg PO DAILY PRN hydroCHLOROthiazide 12.5 mg PO DAILY 11/21/18 11:00 Budesonide [Pulmicort] 0.25 mg INH BID 11/21/18 18:00 Azithromycin [Zithromax] 500 mg Sodium Chloride 0.9% [Normal Saline] 250 ml IV Q24H - Plan Plan:: May DC home today,with no abx.But take Prednisone 20 mg bid for 5 days. See PCP next week
--- NOTE | 2018-11-23 07:24 | DISCH ---
DISCHARGE DATE: 11/22/2018 REASON FOR ADMISSION: Chronic obstructive pulmonary disease exacerbation. DISCHARGE DIAGNOSIS: Chronic obstructive pulmonary disease exacerbation. SECONDARY DIAGNOSES: 1. Chronic back pain. 2. Hypertension. 3. Hyperlipidemia. BRIEF HISTORY: This is an 88-year-old female, who has chronic obstructive pulmonary disease, an occasional smoker, who was brought in because of cough, wheezing. Chest x-ray was negative for pneumonia. She also had a fever and influenza was negative. She was treated initially with Solu-Medrol and also SVNs, got one dose of Levaquin, which was discontinued. She also got 3 doses of azithromycin 500 mg once a day. She was off oxygen the next day and was discharged home to follow up on Friday with PCP, Noel Sanchez, PAC. DISCHARGE MEDICATIONS: She will go home on prednisone 10 mg b.i.d. for 5 days. Please note that I spent more than 35 minutes in the discharge of the patient. /[id number] CHARISMA/AILEEN
== END 2018-11-22 11:50 | disposition home or self-care (01) ==
LOC: FB.ED 09:23 → FB.MS 10:57
PROVIDERS: ADMIT Family Medicine; ATTEND Family Medicine
DX: J44.1 Chronic obstructive pulmonary disease with (acute) exacerbation (principal); J44.0 Chronic obstructive pulmonary disease with (acute) lower respiratory infection; J20.9 Acute bronchitis, unspecified; I10 Essential (primary) hypertension; F17.200 Nicotine dependence, unspecified, uncomplicated; E78.5 Hyperlipidemia, unspecified; M81.0 Age-related osteoporosis without current pathological fracture; M47.9 Spondylosis, unspecified; G89.29 Other chronic pain; M54.9 Dorsalgia, unspecified; E78.00 Pure hypercholesterolemia, unspecified; Z88.6 Allergy status to analgesic agent; Z88.7 Allergy status to serum and vaccine
CPT/HCPCS: 36415; 71046; 80048; 80053; 81001; 83605; 83880; 84484; 85025; 87040; 87804; 87804-59; 94640; 96365; 96366; 96375; 96376; 99285; A9270-GY; G0378; J0456; J1956; J2930; J7050; J7620-GY